=== PATIENT | female | born 1935 ===

== ENCOUNTER 2017-01-31 12:18 | Emergency (ER) | payer MEDICARE, BC ==
[2017-01-31 12:28] VITALS: BP 135/71
--- NOTE | 2017-01-31 12:51 | EDM.PDOC ---
ED HPI GENERAL MEDICAL PROBLEM - General Chief Complaint: Head Injury Stated Complaint: HEAD INJURY FROM FALL Time Seen by Provider: 01/31/17 12:30 Source of Information: Reports: Patient History Limitations: Reports: No Limitations - History of Present Illness INITIAL COMMENTS - FREE TEXT/NARRATIVE: The patient was ironing and tripped over the cord and fell back and hit her head on a file cabinet. She had no LOC. She has no headache. She does have edema to the back of her head. She has no numbness or weakness. She has no nausea or vomiting. She is not on any blood thinners but she has thrombocytopenia and needs platelet transfusions every 6 weeks. She is scheduled for a transfusion next week Sunday. She was advised by her doctor to come get a CT scan. Onset: Sudden Duration: Minutes: Location: Reports: Head (Occipital region) Quality: Reports: Sharp Severity: Moderate Improves with: Reports: None Worsens with: Reports: None Associated Symptoms: Reports: No Other Symptoms Posterior Head Pain Score (Numeric/FACES): 4 - Related Data Allergies Allergy/AdvReac Type Severity Reaction Status Date / Time No Known Allergies Allergy Verified 01/31/17 12:24 Home Meds: Home Meds Amitriptyline HCl 25 mg PO DAILY 10/16/13 [History] Calcium Carbonate [Calcium] 600 mg PO DAILY 10/16/13 [History] Cyanocobalamin (Vitamin B-12) [B-12] 1,500 mcg PO DAILY 10/16/13 [History] Denosumab [Prolia] 10/16/13 [History] Evening [place] Oil [Evening [place]] 500 mg PO DAILY 10/16/13 [History] Famotidine 20 mg PO DAILY 10/16/13 [History] [place]-3 Fatty Acids [[place]-3] 1,000 mg PO DAILY 10/16/13 [History] Omeprazole 20 mg PO DAILY 10/16/13 [History] Red Yeast Rice 600 mg PO DAILY 10/16/13 [History] Past Medical History Hematologic History: Reports: Other (See Below) Other Hematologic History: low platelets Social & Family History - Tobacco Use Smoking Status *Q: Never Smoker - Alcohol Use Days Per Week of Alcohol Use: 1 Number of Drinks Per Day: 1 Total Drinks Per Week: 1 - Recreational Drug Use Recreational Drug Use: No ED ROS GENERAL - Review of Systems Review Of Systems: See Below Constitutional: Reports: No Symptoms HEENT: Reports: Other (Contusion to the back of her head) Respiratory: Reports: No Symptoms Cardiovascular: Reports: No Symptoms Endocrine: Reports: No Symptoms GI/Abdominal: Reports: No Symptoms : Reports: No Symptoms Musculoskeletal: Reports: No Symptoms ED EXAM, HEAD INJURY - Physical Exam Exam: See Below Exam Limited By: No Limitations General Appearance: Alert, No Apparent Distress Head: Other (Contusion to the occipital region of her head) Eyes: Bilateral Eye: EOMI Ears: Normal External Exam Nose: Normal Inspection Neck: Non-Tender, Normal Alignment, Normal Inspection Respiratory: No Respiratory Distress, Lungs Clear, Normal Breath Sounds Cardiovascular: Regular Rate, Rhythm, No Edema, No Murmur GI/Abdominal Exam: Soft, Non-Tender, No Organomegaly, No Mass Back Exam: Normal Inspection Extremities: Normal Inspection Neurologic: No Motor/Sensory Deficits, Alert, Normal Mood/Affect, Oriented x 3 Course - Vital Signs Last Recorded V/S: Last Vital Signs Temp 97.8 F 01/31/17 12:24 Pulse 100 01/31/17 12:24 Resp 16 01/31/17 12:24 BP 135/71 01/31/17 12:24 Pulse Ox 98 01/31/17 12:24 - Orders/Labs/Meds Labs: Laboratory Tests 01/31/17 Range/Units 12:50 WBC 5.56 (3.98-10.04) K/mm3 RBC 4.37 (3.98-5.22) M/mm3 Hgb 12.4 (11.2-15.7) gm/L Hct 38.2 (34.1-44.9) % MCV 87.4 (79.4-94.8) fl MCH 28.4 (25.6-32.2) pg MCHC 32.5 (32.2-35.5) g/dl RDW Std Deviation 47.4 H (36.4-46.3) fL Plt Count 56 L (182-369) K/mm3 MPV 13.3 H (9.4-12.3) fl Neut % (Auto) 70.3 (34.0-71.1) % Lymph % (Auto) 16.2 L (19.3-51.7) % [place] % (Auto) 10.6 (4.7-12.5) % Eos % (Auto) 2.3 (0.7-5.8) Baso % (Auto) 0.4 (0.1-1.2) % Neut # (Auto) 3.91 (1.56-6.13) K/mm3 Lymph # (Auto) 0.90 L (1.18-3.74) K/mm3 [place] # (Auto) 0.59 H (0.24-0.36) K/mm3 Eos # (Auto) 0.13 (0.04-0.36) K/mm3 Baso # (Auto) 0.02 (0.01-0.08) K/mm3 Manual Slide Review Abnormal smear - Re-Assessments/Exams Free Text/Narrative Re-Assessment/Exam: 01/31/17 12:52 I have ordered a CBC and a CT of her head. 01/31/17 14:[address] shows nothing acute. Her platelets were 56. I will discharge her home. Departure - Departure Time of Disposition: 14:30 Disposition: Home, Self-Care 01 Condition: Good Clinical Impression: Fall Qualifiers: Encounter type: initial encounter Qualified Code(s): W19.XXXA - Unspecified fall, initial encounter Contusion of scalp Qualifiers: Encounter type: initial encounter Qualified Code(s): S00.03XA - Contusion of scalp, initial encounter - Discharge Information Referrals: Sabrina Bustamante PA [Primary Care Provider] - 1 Week Forms: ED Department Discharge Additional Instructions: Ice the back of your head for 15 minutes twice per day for 2 days. Take tylenol for any pain. Please return if you are worse such as a bad headache, nausea, vomiting or if you are not acting right.
--- NOTE | 2017-01-31 13:46 | CT ---
Head CT Technique: Multiple axial sections through the brain were obtained. Intravenous contrast was not utilized. Comparison: No previous intracranial imaging is available. Findings: Ventricles along with basal cisterns and sulci over the convexities are mildly prominent. No abnormal parenchymal densities are seen. No evidence of intracranial hemorrhage. No midline shift or mass effect is seen. Dolichoectasia is identified within the right vertebral artery. Slight dolichoectasia is seen within the left carotid siphon. Bone window settings were reviewed which shows mucosal thickening within the right sphenoid sinus as well as minimal mucosal thickening within the maxillary and ethmoid sinuses. Minimal fluid is seen within the left maxillary sinus. Mastoid sinuses are clear. Several lucent lesions are seen within the posterior skull believed to represent normal variant. Impression: 1. Multiple incidental findings as noted above. No acute intracranial abnormality is seen. No acute skull fracture is seen. 2. Sinus findings with small air-fluid level as described above. Findings most likely chronic but please exclude any symptoms to indicate acute sinusitis. Diagnostic code #3
== END 2017-01-31 14:38 | disposition home or self-care (01) ==
LOC: JD.ED 12:18
DX: S00.03XA Contusion of scalp, initial encounter (principal); Z79.899 Other long term (current) drug therapy; W01.190A Fall on same level from slipping, tripping and stumbling with subsequent striking against furniture, initial encounter
CPT/HCPCS: 36415; 70450; 70450-26; 85025; 99283; 99284-25

== ENCOUNTER 2017-06-12 12:15 | Emergency (ER) | payer MEDICARE, BC ==
[2017-06-12 12:32] VITALS: BP 142/71
--- NOTE | 2017-06-12 12:40 | EDM.PDOC ---
ED HPI GENERAL MEDICAL PROBLEM - General Chief Complaint: Head Injury Stated Complaint: HEAD INJURY Time Seen by Provider: 06/12/17 12:33 Source of Information: Reports: Patient, Family (spouse) History Limitations: Reports: No Limitations - History of Present Illness INITIAL COMMENTS - FREE TEXT/NARRATIVE: 82-year-old female presents to the ED for evaluation of closed head injury. She states she was bending over and stood up and struck the occipital vertex aspect of her scalp on a wooden part of the fireplace at home. She was dazed transiently but did not lose consciousness. Her concern is that she has a very low platelet count and is due for platelet transfusion in 7 days time. Last platelet count was around 53,000. Patient also takes two--81 mg aspirins daily after having her right shoulder replaced. She's worried about the possibility of introducing intracranial hemorrhage with minor trauma. At present she has no neurological signs or symptoms. Injury occurred half an hour ago. There is no open wound or bleeding from the scalp. She denies any cervical neck pain. 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.) Head Pain Score (Numeric/FACES): 1 - Related Data Allergies Allergy/AdvReac Type Severity Reaction Status Date / Time No Known Allergies Allergy Verified 06/12/17 12:28 Home Meds: Home Meds Amitriptyline HCl 25 mg PO DAILY 10/16/13 [History] Calcium Carbonate [Calcium] 600 mg PO DAILY 10/16/13 [History] Cyanocobalamin (Vitamin B-12) [B-12] 1,500 mcg PO DAILY 10/16/13 [History] Famotidine 20 mg PO DAILY 10/16/13 [History] [place]-3 Fatty Acids [Mobile-3] 1,000 mg PO DAILY 10/16/13 [History] Omeprazole 20 mg PO DAILY 10/16/13 [History] Red Yeast Rice 600 mg PO DAILY 10/16/13 [History] Aspirin [Ecotrin] 325 mg PO BID 06/12/17 [History] Past Medical History Hematologic History: Reports: Other (See Below) Other Hematologic History: low platelets Social & Family History - Tobacco Use Smoking Status *Q: Never Smoker - Alcohol Use Days Per Week of Alcohol Use: 1 Number of Drinks Per Day: 1 Total Drinks Per Week: 1 - Recreational Drug Use Recreational Drug Use: No - Living Situation & Occupation Living situation: Reports: Occupation: Retired ED ROS GENERAL - Review of Systems Review Of Systems: See Below Constitutional: Reports: No Symptoms HEENT: Reports: No Symptoms, Glasses Respiratory: Reports: No Symptoms Cardiovascular: Reports: No Symptoms Endocrine: Reports: No Symptoms GI/Abdominal: Reports: No Symptoms Musculoskeletal: Reports: Shoulder Pain (Recently underwent right total shoulder shoulder surgery and is pain-free at rest. Only pain occurs with physiotherapy and movement.), Back Pain Skin: Reports: No Symptoms Neurological: Reports: No Symptoms Psychiatric: Reports: No Symptoms Hematologic/Lymphatic: Reports: No Symptoms ED EXAM, HEAD INJURY - Physical Exam Exam: See Below Exam Limited By: No Limitations General Appearance: Alert, WD/WN, No Apparent Distress Head: Scalp Swelling (Occipital vertex of the scalp.), Scalp Abrasions ( Minimal hematoma probably 2 cm in diameter vertex occipital scalp. mild. ), Scalp Ecchymosis Nexus Criteria: No: Posterior, Midline Cervical Tenderness, Altered Level of Consciousness, Painful Distraction Injuries Eyes: Bilateral Eye: Normal Inspection, PERRL Extremities: Other (Right shoulder is in a sling. 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 She states she has no pain at rest. Some pain with physiotherapy and regaining range of motion. ) Neurologic: No Motor/Sensory Deficits, Alert, Normal Mood/Affect, Oriented x 3 - Elise Coma Score Best Eye Response (Elise): (4) Open Spontaneously Best Verbal Response ([place]): (5) Oriented Best Motor Response ([place]): (6) Obeys Commands [place] Total: 15 Course - Vital Signs Last Recorded V/S: Last Vital Signs Temp 36.8 C 06/12/17 12:28 Pulse 94 06/12/17 12:28 Resp BP 142/71 H 06/12/17 12:28 Pulse Ox 94 L 06/12/17 12:28 - Orders/Labs/Meds Orders: Active Orders 24 hr Category Date Time Status Head wo Cont [CT] Stat Exams 06/12/17 12:33 Taken - Radiology Interpretation Free Text/Narrative:: 82-year-old female presents to the ED after suffering minor head trauma when she bumped the occipital vertex aspect of her scalp on the wooden edge of the fireplace at home about a half an hour ago. She was days but she did not lose consciousness. She is not exhibiting any neurological symptoms at this time. Concern arises as she is on aspirin 81 mg twice a day post right total shoulder replacement 3 weeks ago. She also has very low platelets with a left patella count 53,000. She is due for platelet transfusion on June 19. Plan CT head to be done to rule out any potential for intracranial hemorrhage even though the trauma was fairly minor. - Re-Assessments/Exams Free Text/Narrative Re-Assessment/Exam: 06/12/17 13:12 CT head is within normal limits showing age-appropriate degenerative changes. There are no skull fractures or evidence of intracranial bleeding or mass effect. Patient so advised. She'll continue all of her current medications. Departure - Departure Time of Disposition: 13:12 Disposition: Home, Self-Care 01 Condition: Fair Clinical Impression: Closed head injury without concussion Qualifiers: Encounter type: initial encounter Qualified Code(s): S09.90XA - Unspecified injury of head, initial encounter - Discharge Information Referrals: Sabrina Bustamante PA [Primary Care Provider] - Forms: ED Department Discharge Additional Instructions: Evaluation the emergency room today in regards to a closed head injury that occurred at home this morning. Injury to the occipital vertex aspect of the scalp occurred when you struck the corner of the fireplace at home. CT of the head was carried out due to known low platelet count and also being on baby aspirin twice daily. CT scan of the brain reveals age-appropriate changes without any intracranial bleeding or mass effect. No skull fracture is identified either. Therefore it is okay to continue current treatment with aspirin twice daily. May apply ice to the area it's painful or begins to swell more so over the next few hours. Ice pack 20 minutes out of every 3 hours today. - My Orders Last 24 Hours: My Active Orders 06/12/17 12:33 Head wo Cont [CT] Stat - Assessment/Plan Last 24 Hours: My Active Orders 06/12/17 12:33 Head wo Cont [CT] Stat
--- NOTE | 2017-06-12 13:44 | CT ---
Head CT Technique: Multiple axial sections through the brain were obtained. Intravenous contrast was not utilized. Comparison: Prior head CT study of 01/31/17. Findings: Ventricles along with basal cisterns and sulci over convexities are mildly prominent. No abnormal parenchymal density is seen. No evidence of intracranial hemorrhage. No midline shift or mass effect is seen. Dolichoectasia is again noted of the right vertebral artery. Mild atherosclerotic change is noted within the carotid siphon with slight dolichoectasia of the left carotid siphon. No acute calvarial abnormality is seen. Mild mucosal thickening is seen within the maxillary and ethmoid sinuses and right sided sphenoid sinus. Impression: 1. Sinus findings which appear to be chronic. 2. 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 3. No acute intracranial abnormality is appreciated. No skull fracture is identified. No significant change is seen from previous study. Diagnostic code #3
== END 2017-06-12 13:34 | disposition home or self-care (01) ==
LOC: JD.ED 12:15
DX: S09.90XA Unspecified injury of head, initial encounter (principal); S00.03XA Contusion of scalp, initial encounter; Z79.899 Other long term (current) drug therapy; Z79.82 Long term (current) use of aspirin; W22.8XXA Striking against or struck by other objects, initial encounter
CPT/HCPCS: 70450; 70450-26; 99283; 99284-25